=== PATIENT | male | born 1970 | race Caucasian/White ===

== ENCOUNTER → 2019-03-14 | Outpatient (CLI) | payer BC ==
--- NOTE | 2019-03-15 10:39 | RAD ---
EXAM DESCRIPTION: Lumbosacral w/Oblique,Flex,Ext CLINICAL HISTORY: 48 years Male, Low back pain COMPARISON: None. FINDINGS: Seven views of the lumbar spine show no vertebral body fracture or subluxation. Mild disc space narrowing at L3-4. Tiny marginal osteophytes at additional levels. No pars defect. Flexion and extension views show no dynamic instability. IMPRESSION: Mild multilevel degenerative changes including degenerative disc disease at L3-4. Electronically signed by: Maxim Pinzon MD 03/15/2019 10:37 AM CDT
== END ==
LOC: RAD 14:47
PROVIDERS: ATTEND Nurse Practitioner Family
DX: M47.896 Other spondylosis, lumbar region (principal); M51.36 Other intervertebral disc degeneration, lumbar region

== ENCOUNTER → 2019-03-18 | Outpatient (CLI) | payer BC ==
--- NOTE | 2019-03-18 14:47 | MRI ---
EXAM DESCRIPTION: Lumbar Spine w/o Contrast : Magnetic Resonance Imaging. CLINICAL HISTORY: LOW BACK PAIN COMPARISON: Lumbosacral radiographs 03/14/2019. TECHNIQUE: Multiplanar, multiple standard sequences, non contrast MRI, lumbar spine. FINDINGS: L5-S1: Tiny posterior midline bulge. Mild left facet hypertrophic arthrosis and thickening of the left flavum ligament. No significant canal narrowing. Mild to moderate right foraminal narrowing and mild left foraminal narrowing. L4-L5: Normal signal in the disc with disc space preserved. Minimal bilateral flavum ligament thickening AP canal diameter 11 mm. Mild bilateral foraminal narrowing. L3-L4: Mild disc space loss and disc desiccation. Anterior endplate Schmorl's node L3. Tiny posterior midline bulge. Bilateral thickening of the ligaments. Minimal arthrosis right facet. AP canal diameter 11 mm. Mild to moderate narrowing right foramen with mild narrowing of the left foramen. L2-L3: Minimal disc desiccation with disc space preserved. Posterior elements unremarkable. Canal and foramina are patent. L1-L2: Disc space preserved with normal signal in the disc. Posterior elements unremarkable. Canal and foramina are patent. Conus terminates posterior to L1. T12-L1: Normal signal in the disc with small Schmorl's nodes inferior T12 posteriorly. Posterior elements unremarkable. Canal and foramina are patent. Included cord with normal signal. Mild L1 L5 levoscoliosis. Paravertebral soft tissues negative.. Normal marrow signal in the remaining vertebral bodies and the posterior elements. Vertebral bodies are not compressed at any level. IMPRESSION: 1. Moderate canal narrowing at several levels this may be related to pedicles. 2. Mild to moderate right foraminal narrowing and mild left foraminal narrowing at L5-S1. 3. Moderate canal narrowing at L4-L5 and L3-L4. Tiny posterior bulge of the disc at L3-L4, disc desiccation, with mild disc space loss. Mild to moderate narrowing of the right foramen. Electronically signed by: Maurilio Holman MD 03/18/2019 2:44 PM CDT
== END ==
LOC: LAB.O 10:30
PROVIDERS: ATTEND Nurse Practitioner Family
DX: M51.36 Other intervertebral disc degeneration, lumbar region (principal); M51.26 Other intervertebral disc displacement, lumbar region